=== PATIENT | male | born 1965 | race Caucasian/White ===

== ENCOUNTER 2021-12-14 13:17 | Outpatient (CLI) | payer MEDICARE ==
[2021-12-14] MEDS ORDERED: Magnevist 469MG/ML 20 ML VIAL ONE (13:42)
== END 2021-12-14 13:18 | disposition home or self-care (01) ==
LOC: CSHMRI 13:17
PROVIDERS: ATTEND Family Medicine
DX: D49.6 Neoplasm of unspecified behavior of brain (principal); Z98.890 Other specified postprocedural states
CPT/HCPCS: 70553; A9579